=== PATIENT | male | born 1955 | race Caucasian/White ===

== ENCOUNTER 2018-04-19 12:05 | Emergency (ER) | payer BC, OTHER ==
[2018-04-19] MEDS ORDERED: HEPARIN 5000 UNIT/ML 1 ML VIAL ONE (12:38)
[2018-04-19] MEDS ORDERED: HEPARIN/D5W 25,000 UNIT/500 ML BAG IV ONE (12:38)
[2018-04-19] MEDS ORDERED: ONDANSETRON 4 MG/2 ML VIAL ONE (12:52)
[2018-04-19] MEDS ORDERED: MORPHINE 4 MG/ML SYR ONE (12:52)
[2018-04-19 12:53] LABS: Absolute Monocytes 0.8 K/uL (0.1-1.3); Absolute Neutrophil 5.3 K/uL (1.8-8.0); Basophils % 0.9 % (0-1.3); Eosinophils % 1.9 % (0-4.4); Lymphocytes % 23.6 % (15.3-44.8); MCV 83.2 fL (80-100); MPV 8.7 fL (7.6-11.3); Monocytes % 9.5 % (3.3-12.3); RBC Red Blood Cell Count 6.01 M/uL (4.33-5.43)
--- NOTE | 2018-04-19 12:59 | ER ---
Nurse's Notes [facility] Name: Indio Narvaez Age: 62 yrs Sex: Male : 1955 Arrival Date: 04/19/2018 Time: 12:14 Bed 4 Private MD: Diagnosis: Acute embolism and thrombosis of left femoral vein Presentation: 04/19 12:20 Presenting complaint: Patient states: left leg pain and left leg swelling since today. aa5 Tachypnea noted, pt states "I'm just in pain". Transition of care: patient was not received from another setting of care. Onset of symptoms was April 19, 2018. Risk Assessment: Do you want to hurt yourself or someone else? Patient reports no desire to harm self or others. Initial Sepsis Screen: Does the patient meet any 2 criteria? No. Patient's initial sepsis screen is negative. Does the patient have a suspected source of infection? No. Patient's initial sepsis screen is negative. Care prior to arrival: None. 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 - Social history:: Smoking status: Patient uses tobacco products, chewing tobacco. - Ebola Screening: : No symptoms or risks identified at this time. Screenin:25 Abuse screen: Denies threats or abuse. Denies injuries from another. Nutritional sg screening: No deficits noted. Tuberculosis screening: No symptoms or risk factors identified. Never had TB. Fall Risk None identified. Assessment: 12:25 General: Appears uncomfortable, well groomed, well developed, well nourished, Behavior sg is cooperative, anxious, restless. Pain: Complains of pain in left leg, left lower back Quality of pain is described as aching, sharp, tingling, throbbing, piercing. Neuro: Level of Consciousness is awake, alert, obeys commands, Oriented to person, place, time, situation, Mainframe Systems Administrator are equal bilaterally Moves all extremities. Full function Gait is unsteady, Speech is normal, Facial symmetry appears normal. Cardiovascular: Heart tones S1 S2 present Capillary refill is brisk in bilateral fingers Patient's skin is warm and dry. Chest pain is denied. Cardiovascular: Pulses are palpable in left popliteal artery, left posterior tibial artery and left dorsalis pedis artery weak thready pulse noted. Respiratory: Airway is patent Respiratory effort is even, unlabored, Respiratory pattern is hyperventilation. GI: Abdomen is round non-distended, Bowel sounds present X 4 quads. Abd is soft and non tender X 4 quads. Reports normal bowel habits. : No signs and/or symptoms were reported regarding the genitourinary system. EENT: No signs and/or symptoms were reported regarding the EENT system. Derm: Skin is dusky, purple color noted to the left lower extremity Skin temperature is cool. Musculoskeletal: Circulation, motion, and sensation intact. Capillary refill is sluggish, in left toes. Swelling present in left leg. 13:20 Reassessment: Patient appears in no apparent distress at this time. Patient and/or sg family updated on plan of care and expected duration. Pain level reassessed. Patient is alert, oriented x 3, equal unlabored respirations, skin warm/dry/pink. reports pain has decreased at this time, still uncomfortable, a 7/10 per pt Patient states feeling better. Vital Signs: 12:21 BP 136 / 79; Pulse 84; Resp 26 S; Temp 98.0(TE); Pulse Ox 100% on R/A; Weight 90.72 kg aa5 (R); Height 5 ft. 10 in. (177.80 cm) (R); Pain 10/10; 13:58 BP 114 / 78; Pulse 66; Resp 15; Pulse Ox 97% on 2 lpm NC; Pain 0/10; ss 12:21 Body Mass Index 28.70 (90.72 kg, 177.80 cm) aa5 ED Course: 12:14 Patient arrived in ED. sb2 12:20 Triage completed. aa5 12:20 Arm band placed on. aa5 12:24 Patient placed in an exam room, on a stretcher. aa5 12:29 Luis Murphy MD is Attending Physician. kdr 12:38 EKG done, by sleep technician. reviewed by Luis Murphy MD. at1 12:40 Patient has correct armband on for positive identification. Placed in gown. Bed in low sg position. Call light in reach. Side rails up X2. manager security and safety on. Pulse ox on. NIBP on. 12:43 Note: US BEING DONE PORTABLE/BEDSIDE. aa4 12:49 Ras Hernandez, RN is Primary Nurse. sg 12:54 Extremity Venous Uni Ltd US In Process Unspecified. EDMS 13:15 Ultrasound completed. Patient tolerated well. aa4 13:20 XRAY Chest (1 view) In Process Unspecified. EDMS 13:20 X-ray completed. Portable x-ray completed in exam room. Patient tolerated procedure jb2 well. 14:16 No provider procedures requiring assistance completed. Patient transferred, IV remains ss in place. Administered Medications: 12:50 Drug: Heparin (DVT/PE- Bolus per protocol) - HEParin 80 units/kg {Co-Signature: scott (Soraya Garcia RN).} Route: IVP; Site: right antecubital; 14:03 Follow up: Response: No adverse reaction ss 12:50 Drug: Heparin (DVT/PE Drip) 18 units/kg/hr - (HEParin 92742 units, D5W 500 ml) {Co-Signature: syed (Soraya Garcia RN).} Route: IV; Rate: calculated rate; Site: right antecubital; 14:02 Follow up: IV Status: Infusion continued upon transfer ss 12:55 Drug: morphine 6 mg Route: IVP; Site: left antecubital; sg 14:02 Follow up: Response: No adverse reaction; Marked relief of symptoms; Pain is decreased ss 12:55 Drug: Zofran 4 mg Route: IVP; Site: left antecubital; sg 14:03 Follow up: Response: No adverse reaction ss 14:02 Not Given (denies pain at this time. ): morphine 5 mg IVP once ss Outcome: 12:58 ER care complete, transfer ordered by . kdr 14:16 Transferred by helicopter Transfer form completed. X-rays sent w/ patient. ss 14:16 Condition: stable 14:16 Instructed on the need for transfer. 14:17 Patient left the ED. ss Signatures: Dispatcher [employer] EDMS Ras Hernandez, RN RN Luis Murphy MD MD kdr Buechter, Jesse jb2 Cassidy Mchugh aa4 Ernestine Khan, RN RN aa5 Soraya Garcia, NHUNG RN ss Cassidy blum, second shift supervisor EKG Tat1 Magalys Wise sb2 Soraya Garcia RN ss Corrections: (The following items were deleted from the chart) 12:28 12:20 Acuity: KINGA 3 aa5 aa5 12:43 12:37 Patient taken to ultrasound. via wheelchair. aa4 aa4 04/20 06:11 04/19 13:58 BP 114 / 78; Pulse 66bpm; Resp 15bpm; Pulse Ox 97% RA; Pain 0/10; [facility] 04/20 06:59 04/19 12:25 General: Appears in no apparent distress. comfortable, well groomed, well sg developed, well nourished, Behavior is calm, cooperative, appropriate for age, sg
--- NOTE | 2018-04-19 12:59 | EDPHYS ---
Physician Documentation [facility] Name: Indio Narvaez Age: 62 yrs Sex: Male : 1955 Arrival Date: 04/19/2018 Time: 12:14 Bed 4 Private MD: ED Physician Luis Murphy HPI: 04/19 14:39 This 62 yrs old Male presents to ER via Ambulatory with complaints of Hip kdr Pain, Leg Pain. 14:39 The patient or guardian reports decreased range of motion, pain, swelling. that kdr occurred at home, The patient is able to ambulate with assistance. The patient is able to bear partial body weight. The complaints affect the left leg. Onset: The symptoms/episode began/occurred The patient had left hip and flank pain yesterday morning and then noted swelling to left lateral thigh today at bout 10:30. He took a shower and when he exited, he noted that his left leg was purple and his brought him to the ED. He presented with excruciating pain in his left leg which was cyanotic from the groin to his foot. he had movement of his foot and sensation was grossly intact.. Modifying factors: The symptoms are alleviated by nothing, the symptoms are aggravated by any movement. Associated signs and symptoms: Pertinent positives: None. Pertinent negatives: chest pain, shortness of breath. Severity of symptoms: At their worst the symptoms were. The patient has not experienced similar symptoms in the past. The patient has not recently seen a physician. Historical: - Allergies: 12:21 PENICILLINS; aa5 - Home Meds: 12:29 Aspirin Oral [Active]; aa5 - PMHx: 12:21 Myocardial infarction; aa5 - PSHx: 12:21 CABG; aa5 - Immunization history:: Adult Immunizations unknown. - Social history:: Smoking status: Patient uses tobacco products, chewing tobacco. - Ebola Screening: : No symptoms or risks identified at this time. ROS: 14:39 Constitutional: Negative for fever, chills, and weight loss, Eyes: Negative for injury, kdr pain, redness, and discharge, ENT: Negative for injury, pain, and discharge, Neck: Negative for injury, pain, and swelling, Cardiovascular: Negative for chest pain, palpitations, and edema, Respiratory: Negative for shortness of breath, cough, wheezing, and pleuritic chest pain, Abdomen/GI: Negative for abdominal pain, nausea, vomiting, diarrhea, and constipation, Back: Negative for injury and pain, : Negative for injury, bleeding, discharge, and swelling, Neuro: Negative for headache, weakness, numbness, tingling, and seizure activity. Psych: Negative for depression, anxiety, suicide ideation, homicidal ideation, and hallucinations, Allergy/Immunology: Negative for hives, rash, and allergies, Endocrine: Negative for neck swelling, polydipsia, polyuria, polyphagia, and marked weight changes, Hematologic/Lymphatic: Negative for swollen nodes, abnormal bleeding, and unusual bruising. 14:39 MS/extremity: Positive for decreased range of motion, ecchymosis, pain, swelling, of the left leg. 14:39 Skin: Positive for discoloration, pallor, swelling, of the left leg. Exam: 14:39 Constitutional: This is a well developed, well nourished patient who is awake, alert, kdr and in severe distress. Head/Face: Normocephalic, atraumatic. Neck: Trachea midline, no thyromegaly or masses palpated, and no cervical lymphadenopathy. Supple, full range of motion without nuchal rigidity, or vertebral point tenderness. No Meningismus. Chest/axilla: Normal chest wall appearance and motion. Nontender with no deformity. No lesions are appreciated. Cardiovascular: Regular rate and rhythm with a normal S1 and S2. No gallops, murmurs, or rubs. Normal PMI, no JVD. No pulse deficits. Respiratory: Lungs have equal breath sounds bilaterally, clear to auscultation and percussion. No rales, rhonchi or wheezes noted. No increased work of breathing, no retractions or nasal flaring. Abdomen/GI: Soft, non-tender, with normal bowel sounds. No distension or tympany. No guarding or rebound. No evidence of tenderness throughout. Back: No spinal tenderness. No costovertebral tenderness. Full range of motion. Neuro: Awake and alert, GCS 15, oriented to person, place, time, and situation. Cranial nerves II-XII grossly intact. Motor strength 5/5 in all extremities. Sensory grossly intact. Cerebellar exam normal. Normal gait. Psych: Awake, alert, with orientation to person, place and time. Behavior, mood, and affect are within normal limits. 14:39 Musculoskeletal/extremity: Pulses: noted to be 1+ in the left posterior tibial artery and left dorsalis pedis artery, Perfusion: the patient is cool, dusky, mottled, pale, have sluggish capillary refill, Calf tenderness, is absent, Edema, is not appreciated. Vital Signs: 12:21 BP 136 / 79; Pulse 84; Resp 26 S; Temp 98.0(TE); Pulse Ox 100% on R/A; Weight 90.72 kg aa5 (R); Height 5 ft. 10 in. (177.80 cm) (R); Pain 10/10; 13:58 BP 114 / 78; Pulse 66; Resp 15; Pulse Ox 97% on 2 lpm NC; Pain 0/10; ss 12:21 Body Mass Index 28.70 (90.72 kg, 177.80 cm) aa5 MDM: 12:58 Patient medically screened. kdr 13:20 Data reviewed: vital signs, nurses notes. Counseling: I had a detailed discussion with kdr the patient and/or guardian regarding: the historical points, exam findings, and any diagnostic results supporting the discharge/admit diagnosis, lab results, radiology results, the need to transfer to another facility. ED course: D/w Dr. Brown - will accept to hospitalist service with consult to his service. I indicated that we would be transporting via helicopter. 13:27 ED course: D/w Dr. Lopez (medicine) who accepted the patient to CVICU. kdr 04/19 12:30 Order name: Basic Metabolic Panel kdr 04/19 12:30 Order name: BNP kdr 04/19 12:30 Order name: CBC with Diff kdr 04/19 12:30 Order name: Ckmb kdr 04/19 12:30 Order name: CPK kdr 04/19 12:30 Order name: LFT's kdr 04/19 12:28 Order name: Extremity Venous Uni Ltd US bd 04/19 12:30 Order name: Magnesium kdr 04/19 12:30 Order name: PT-INR; Complete Time: 13:15 kdr 04/19 12:30 Order name: Ptt, Activated; Complete Time: 13: kdr 04/19 12:30 Order name: Troponin (emerg Dept Use Only) kdr 04/19 12:30 Order name: XRAY Chest (1 view) kdr 04/19 13:26 Order name: CBC Smear Scan EDNY 04/19 12:30 Order name: EKG; Complete Time: 12:31 kdr 04/19 12:30 Order name: Cardiac monitoring; Complete Time: 12:45 [facility] 04/19 12:30 Order name: EKG - Nurse/Tech; Complete Time: 12:45 kdr 04/19 12:30 Order name: IV Saline Lock; Complete Time: 12:45 kdr 04/19 12:30 Order name: Labs collected and sent; Complete Time: 12:45 kdr 04/19 12:30 Order name: O2 Per Protocol; Complete Time: 12:45 kdr 04/19 12:30 Order name: O2 Sat Monitoring; Complete Time: 12:45 kdr Administered Medications: 12:50 Drug: Heparin (DVT/PE- Bolus per protocol) - HEParin 80 units/kg {Co-Signature: syed chavez (Soraya Garcia RN).} Route: IVP; Site: right antecubital; 14:03 Follow up: Response: No adverse reaction 12:50 Drug: Heparin (DVT/PE Drip) 18 units/kg/hr - (HEParin 34387 units, D5W 500 ml) {Co-Signature: syed (Soraya Garcia RN).} Route: IV; Rate: calculated rate; Site: right antecubital; 14:02 Follow up: IV Status: Infusion continued upon transfer ss 12:55 Drug: morphine 6 mg Route: IVP; Site: left antecubital; sg 14:02 Follow up: Response: No adverse reaction; Marked relief of symptoms; Pain is decreased ss 12:55 Drug: Zofran 4 mg Route: IVP; Site: left antecubital; sg 14:03 Follow up: Response: No adverse reaction ss 14:02 Not Given (denies pain at this time. ): morphine 5 mg IVP once ss Disposition: 04/19/18 12:58 Transfer ordered to [facility]. Diagnosis is Acute embolism and thrombosis of left femoral vein. - Reason for transfer: Higher level of care. - Accepting physician is Accepting MD. - Condition is Serious. - Problem is new. - Symptoms are unchanged. Signatures: Dispatcher [facility] Ras Hernandez RN RN sg Luis Murphy MD MD kdr Ernestine Khan RN RN aa5 Soraya Garcia RN RN ss Soraya Garcia RN ss Corrections: (The following items were deleted from the chart) 14:17 12:58 04/19/2018 12:58 Transfer ordered to [facility]. Diagnosis is ss Acute embolism and thrombosis of left femoral vein. Reason for transfer: Higher level of care. Accepting physician is Accepting MD. Condition is Serious. Problem is new. Symptoms are unchanged. kdr
[2018-04-19 13:07] LABS: Protime INR 0.99
[2018-04-19 13:26] LABS: Blood Morphology Comment NOT SEEN (NOT SEEN); Platelet Estimate ADEQ; Urine White Blood Cell Casts OK
--- NOTE | 2018-04-19 13:28 | RAD REPORT ---
EXAM DESCRIPTION: VASExtremity Venous Uni Ltd04/19/2018 1:15 pm CLINICAL HISTORY: left leg pain and swelling. COMPARISON: None. FINDINGS: Echogenic material is present within the left common femoral, left superficial femoral, le ft popliteal and left posterior tibial veins consistent with acute thrombus. IMPRESSION: Extensive left lower extremity deep venous thrombosis
--- NOTE | 2018-04-19 14:06 | EKG ---
Test Date: 2018-04-19 Test Time: 12:30:43 [employer]: MARY MEASUREMENT RESULTS: Intervals: Rate: 74 SD: 142 QRSD: 78 QT: 376 QTc: 417 [place]: P: 53 SD: 142 QRS: 70 T: 7 INTERPRETIVE STATEMENTS: Poor data quality Normal sinus rhythm Inferior infarct, age undetermined Abnormal ECG No previous ECG available for comparison Electronically Signed On 04-19-18 14:05:31 CDT by Dustin Gauthier
[2018-04-19 14:13] LABS: CKMB Creatine Kinase MB 0.8 ng/ml (0.3-4.0); Potassium 4.4 mEq/L (3.6-5.0)
[2018-04-19 14:19] LABS: Albumin 4.3 g/dL (3.2-5.5); Bilirubin Direct 0.1 mg/dL (0-0.2); Bilirubin Total 0.8 mg/dL (0.3-1.2); Magnesium 1.7 mg/dL (1.8-2.5); Protein, Total 8.2 g/dL (6.0-8.3)
--- NOTE | 2018-04-19 14:24 | RAD REPORT ---
EXAM DESCRIPTION: [place] Single View04/19/2018 1:20 pm CLINICAL HISTORY: Chest pain COMPARISON: None FINDINGS: The lungs appear clear of acute infiltrate. The heart is mildly enlarged. Postsurgical changes involve the chest. IMPRESSION: No acute abnormalities displayed
== END 2018-04-19 14:17 | disposition short-term general hospital (02) ==
LOC: ER 12:05
DX: I82.412 Acute embolism and thrombosis of left femoral vein (principal); I25.2 Old myocardial infarction; Z72.0 Tobacco use; Z79.82 Long term (current) use of aspirin; Z88.0 Allergy status to penicillin; Z95.1 Presence of aortocoronary bypass graft
CPT/HCPCS: 36415; 71045; 80048; 80076; 82550; 82553; 82962; 83735; 83880; 84484; 85025; 85610; 85730; 93005; 93971; 99285; J1644; J2405